=== PATIENT | male | born 1980 | race Caucasian/White ===

== ENCOUNTER 2016-09-12 05:54 | Emergency (ER) | payer OTHER ==
[~2016-09-12] VITALS: Ht 175.3 cm; Wt 80.7 kg
[2016-09-12] MEDS ORDERED: NEXI20GR PO (06:06)
[2016-09-12] MEDS ORDERED: celebrex (06:08)
[2016-09-12] MEDS ORDERED: ZOFR4TAB3 PO (07:37)
[2016-09-12] MEDS ORDERED: PANTOPRAZOLE 40MG INJ (PROTONIX) (C9113) IV ONE (07:45)
[2016-09-12] MEDS ORDERED: METOCLOPRAMIDE INJ 10MG/2ML VIAL (J2765) IV ONE (07:45)
[2016-09-12] MEDS ORDERED: NS 1,000 ML IV ONE (07:45)
[2016-09-12 10:19] VITALS: BP 124/75
== END 2016-09-12 10:21 | disposition home or self-care (01) ==
LOC: M ED 06:45
DX: R11.2 Nausea with vomiting, unspecified (principal); R19.7 Diarrhea, unspecified; Z79.899 Other long term (current) drug therapy
CPT/HCPCS: 96361; 96374; 96375; 99282; C9113; J2765